=== PATIENT | male | born 1975 | race Two or more races ===

== ENCOUNTER 2016-04-26 16:54 | Emergency (ER) | payer SELFPAY ==
--- NOTE | 2016-04-26 19:23 | ER Document Report ---
ED Suture/Wound Recheck - General Chief Complaint: Suture Removal Stated Complaint: STITCH REMOVAL Time seen by provider: 19:20 Mode of Arrival: Ambulatory Information source: Patient Notes: 40-year-old male presents to ED for suture removal from his right thumb for sutures TRAVEL OUTSIDE OF THE [place] IN LAST 30 DAYS: No - HPI Previous ED treatment: Laceration repair Quality of pain: No pain Severity: None Pain Level: Denies Context: Injury Symptoms since procedure: No complaints Exacerbated by: Denies Relieved by: Denies - Related Data Allergies/Adverse Reactions: No Known Allergies Allergy (Verified 04/26/16 17:21) Past Medical History - General Information source: Patient - Social History Smoking Status: Unknown if Ever Smoked Chew tobacco use (# tins/day): No Frequency of alcohol use: None Drug Abuse: None Occupation: [employer] Lives with: Family Family History: Reviewed & Not Pertinent, Other Patient has suicidal ideation: No Patient has homicidal ideation: No - Past Medical History Cardiac Medical History: Reports: Hx Hypercholesterolemia, Hx Hypertension Pulmonary Medical History: Reports: None EENT Medical History: Reports: None Neurological Medical History: Reports: None Endocrine Medical History: Reports: Hx Diabetes Mellitus Type 2 Renal/ Medical History: Reports: None Malignancy Medical History: Reports None GI Medical History: Reports: None Musculoskeltal Medical History: Reports None Skin Medical History: Reports None Psychiatric Medical History: Reports: None Traumatic Medical History: Reports: None Infectious Medical History: Reports: None Past Surgical History: Reports: Hx Appendectomy, Hx Cardiac Surgery - valve replaced, Hx Valve Replacement - Immunizations Immunizations up to date: Yes Hx Diphtheria, Pertussis, Tetanus Vaccination: Yes Review of Systems - Review of Systems Constitutional: No symptoms reported EENT: No symptoms reported Cardiovascular: No symptoms reported Respiratory: No symptoms reported Gastrointestinal: No symptoms reported Genitourinary: No symptoms reported Male Genitourinary: No symptoms reported Musculoskeletal: No symptoms reported Skin: No symptoms reported Hematologic/Lymphatic: No symptoms reported Neurological/Psychological: No symptoms reported Physical Exam - Vital signs Vitals: Temp Pulse Resp BP Pulse Ox 98.1 F 44 L 16 107/55 L 99 04/26/16 17:15 04/26/16 17:15 04/26/16 17:15 04/26/16 17:15 04/26/16 17:15 Interpretation: Normal - General General appearance: Appears well, Alert - HEENT Head: Normocephalic, Atraumatic Eyes: Normal Pupils: PERRL - Respiratory Respiratory status: No respiratory distress Chest status: Nontender Breath sounds: Normal Chest palpation: Normal - Cardiovascular Rhythm: Regular Heart sounds: Normal auscultation Murmur: No - Abdominal Inspection: Normal Distension: No distension Bowel sounds: Normal Tenderness: Nontender Organomegaly: No organomegaly - Back Back: Normal, Nontender - Extremities General upper extremity: Normal inspection, Nontender, Normal color, Normal ROM , Normal temperature General lower extremity: Normal inspection, Nontender, Normal color, Normal ROM , Normal temperature, Normal weight bearing. No: Noa's sign - Neurological Neuro grossly intact: Yes Cognition: Normal Orientation: AAOx4 Fabiana Coma Scale Eye Opening: Spontaneous Fab[place] Coma Scale Verbal: Oriented [place] Coma Scale Motor: Obeys Commands Fabiana Coma Scale Total: 15 Speech: Normal Motor strength normal: LUE, RUE, LLE, RLE Sensory: Normal - Psychological Associated symptoms: Normal affect, Normal mood - Skin Skin Temperature: Warm Skin Moisture: Dry Skin Color: Normal Location of irregularity: Other - Sutures removed from right thumb denies pain no signs of infection Course - Re-evaluation Re-evalutation: 04/26/16 20:44 Sutures removed from left thumb and patient discharged home to follow-up with primary doctor list of primary doctors given - Vital Signs Vital signs: Temp Pulse Resp BP Pulse Ox 98.2 F 60 16 111/69 99 04/26/16 19:28 04/26/16 19:28 04/26/16 19:28 04/26/16 19:28 04/26/16 19:28 Discharge - Discharge Clinical Impression: Visit for suture removal Condition: Stable Disposition: HOME, SELF-CARE Instructions: Suture Removal, Family Physicians / Practices Additional Instructions: Acetaminophen Acetaminophen may be taken for pain relief or fever control. It's much safer than aspirin, offering a wider range of "safe" dosages. It is safe during . Some brand names are Tylenol, Panadol, Datril, Anacin 3, Tempra, and Liquiprin. Acetaminophen can be repeated every four hours. The following are maximum recommended dosages: WEIGHT Dose Drops Elixir Chewable( 80mg) (LBS.) drprs=droppers tsp=teaspoon 6 40 mg .4 ml (1/2) 6-11 80 mg .8 ml (full) 1/2 tsp 1 tab 12-16 120 mg 1 1/2 drprs 3/4 tsp 1 1/2 tabs 17-23 160 mg 2 drprs 1 tsp 2 tabs 24-30 240 mg 3 drprs 1 1/2 tsp 3 tabs 30-35 320 mg 2 tsp 4 tabs 36-41 360 mg 2 1/4 tsp 4 1 /2 tabs 42-47 400 mg 2 1/2 tsp 5 tabs 48-53 480 mg 3 tsp 6 tabs 54-59 520 mg 3 1/4 tsp 6 1 /2 tabs 60-64 560 mg 3 1/2 tsp 7 tabs 65-70 600 mg 3 3/4 tsp 7 1 /2 tabs 71-76 640 mg 4 tsp 8 tabs 77-82 720 mg 4 1/2 tsp 9 tabs 83-88 800 mg 5 tsp 10 tabs >89 pounds or adults 650 mg to 900 mg Acetaminophen can be repeated every four hours. Maximum daily dose not to exceed 4000 mg. These maximum recommended dosages are slightly higher than the dosages written on the product container, but these dosages are very safe and well below the toxic dosage for acetaminophen. FOLLOW-UP CARE: If you have been referred to a physician for follow-up care, call the physician s office for an appointment as you were instructed or within the next two days. If you experience worsening or a significant change in your symptoms, notify the physician immediately or return to the Emergency Department at any time for re-evaluation. Forms: Return to Work
[2016-04-26 19:29] VITALS: BP 111/69
== END 2016-04-26 19:29 | disposition home or self-care (01) ==
LOC: ER 16:54
DX: Z48.02 Encounter for removal of sutures (principal)

== ENCOUNTER 2018-04-05 11:26 | Emergency (ER) | payer SELFPAY ==
[2018-04-05] MEDS ORDERED: NORMAL SALINE 500 ML IV ONE (11:49)
--- NOTE | 2018-04-05 11:49 | ER Document Report ---
ED Medical Screen (RME) - General Chief Complaint: Dizziness Stated Complaint: FALL Time Seen by Provider: 04/05/18 11:37 Notes: Patient is a 42-year-old male with history of mechanical aortic valve and diabetes that presents to the emergency department for chief complaint of near syncope while at work. History obtained using a Albanian multi disciplined language analyst, using [employer] #[id number] patient states while he was at work he started feeling lightheaded, and nauseous, he stopped working when his car in [place] but the symptoms persisted so he wanted to come to the ED no history of this in the past per patient.. ROS: Other than noted above, the 12 point review of systems was reviewed with the patient and were negative, all pertinent findings are included in the HPI. PHYSICAL EXAMINATION: Vital signs reviewed. GENERAL: Well-appearing, well-nourished and in no acute distress. HEAD: Atraumatic, normocephalic. EYES: Pupils equal round extraocular movements intact, conjunctiva are normal. ENT: Nares patent NECK: Normal range of motion CV: Heart rate bradycardic, regular rhythm. LUNGS: No respiratory distress Musculoskeletal: Normal range of motion NEUROLOGICAL: Normal speech PSYCH: Normal mood, normal affect. MDM: Patient seen and examined for rapid initial assessment. Vital signs reviewed. A comprehensive ED assessment and evaluation of the patient, analysis of test results and completion of the medical decision making process will be conducted by additional ED providers. *Note is created using voice recognition software and may contain spelling, syntax or grammatical errors. TRAVEL OUTSIDE OF THE [place] IN LAST 30 DAYS: No - Related Data Allergies/Adverse Reactions: No Known Allergies Allergy (Verified 04/26/16 17:21) Past Medical History - Past Medical History Cardiac Medical History: Reports: Hx Hypercholesterolemia, Hx Hypertension Neurological Medical History: Denies: Hx Seizures Endocrine Medical History: Reports: Hx Diabetes Mellitus Type 2 Renal/ Medical History: Denies: Hx Peritoneal Dialysis Past Surgical History: Reports: Hx Appendectomy, Hx Cardiac Surgery - valve replaced, Hx Valve Replacement - Immunizations Immunizations up to date: Yes Hx Diphtheria, Pertussis, Tetanus Vaccination: Yes Physical Exam - Vital signs Vitals: Temp Pulse Resp BP Pulse Ox 98.4 F 50 L 16 116/63 97 04/05/18 11:32 04/05/18 11:32 04/05/18 11:32 04/05/18 11:32 04/05/18 11:32 Course - Vital Signs Vital signs: Temp Pulse Resp BP Pulse Ox 98.4 F 50 L 16 116/63 97 04/05/18 11:32 04/05/18 11:32 04/05/18 11:32 04/05/18 11:32 04/05/18 11:32
[2018-04-05 12:35] LABS: ABSOLUTE BASOPHILS # (AUTO) 0.1 10^3/uL (0.0-0.2); ABSOLUTE EOSINOPHILS # (AUTO) 0.1 10^3/uL (0.0-0.6); ABSOLUTE MONOCYTES (AUTO) 0.4 10^3/uL (0.1-1.4); ABSOLUTE NEUT (AUTO) 6.3 10^3/uL (1.7-8.2); BASOPHILS % (AUTO) 0.7 % (0-2); EOSINOPHILS % (AUTO) 1.3 % (0-6); HEMATOCRIT 42.4 % (37.9-51.0); HEMOGLOBIN 14.4 g/dL (13.5-17.0); LYMPHOCYTES % (AUTO) 12.9 % (13-45); MEAN CORPUSCULAR HEMOGLOBIN 30.6 pg (27.0-33.4); MEAN CORPUSCULAR VOLUME 90 fl (80-97); MONOCYTES % (AUTO) 4.7 % (3-13); PLATELET COUNT 181 10^3/uL (150-450); RED BLOOD COUNT 4.71 10^6/uL (4.35-5.55); RED CELL DISTRIBUTION WIDTH 13.4 % (11.5-14.0); SEGMENTED NEUTROPHILS % (AUTO) 80.4 % (42-78); TOTAL CELLS COUNTED % (AUTO) 100 %; WHITE BLOOD COUNT 7.9 10^3/uL (4.0-10.5)
[2018-04-05 12:36] LABS: INTERNATIONAL RATION (INR) 1.92; PROTHROMBIN TIME 22.9 SEC (11.4-15.4)
[2018-04-05 12:48] LABS: ALANINE AMINOTRANSFERASE 37 U/L (21-72); ALBUMIN 4.7 g/dL (3.5-5.0); ALKALINE PHOSPHATASE 62 U/L (38-126); ANION GAP 9 (5-19); ASPARTATE AMINO TRANSFERASE 32 U/L (17-59); BILIRUBIN,DIRECT 0.1 mg/dL (0.0-0.4); BILIRUBIN,TOTAL 0.4 mg/dL (0.2-1.3); BLOOD UREA NITROGEN 17 mg/dL (7-20); CALCIUM 9.7 mg/dL (8.4-10.2); CARBON DIOXIDE 31 mmol/L (22-30); CHLORIDE 103 mmol/L (98-107); CREATINE KINASE 230 U/L (55-170); GLUCOSE 116 mg/dL (75-110); POTASSIUM 4.3 mmol/L (3.6-5.0); SODIUM 142.5 mmol/L (137-145); TOTAL PROTEIN 7.5 g/dL (6.3-8.2)
--- NOTE | 2018-04-05 13:26 | RADIOLOGY REPORT (SQ) ---
EXAM DESCRIPTION: CHEST 2 VIEWS COMPLETED DATE/TIME: 04/05/2018 12:42 pm REASON FOR STUDY: near syncope COMPARISON: None. EXAM PARAMETERS: NUMBER OF VIEWS: two views TECHNIQUE: Digital Frontal and Lateral radiographic views of the chest acquired. RADIATION DOSE: NA LIMITATIONS: none FINDINGS: LUNGS AND PLEURA: No opacities, masses or pneumothorax. No pleural effusion. MEDIASTINUM AND HILAR STRUCTURES: No masses or contour abnormalities. HEART AND VASCULAR STRUCTURES: Heart normal size. No evidence for failure. BONES: No acute findings. HARDWARE: Sternotomy wires are in place along with valvular prostheses. OTHER: No other significant finding. IMPRESSION: NO ACUTE RADIOGRAPHIC FINDING IN THE CHEST. TECHNICAL DOCUMENTATION: JOB ID: [id number] [employer]- All Rights Reserved Reading location - IP/workstation name: [email or web address]
--- NOTE | 2018-04-05 15:42 | ER Document Report ---
ED Dizziness/Weakness - General Chief Complaint: Dizziness Stated Complaint: FALL Time Seen by Provider: 04/05/18 11:37 Notes: This is a 42-year-old male Zimbabwean-speaking only to the emergency department after a near syncopal episode. Patient states that all of a sudden he felt like he was going to pass out. [place] weak all over and went to the ground. Denied any chest pain. Patient does have a history of valvular heart replacement. He thinks it is the aortic valve and may be the mitral valve? Is a mechanical valve. On Coumadin. On lisinopril. On glipizide. States that he did eat something afterwards and it did make him feel a little bit better but he was still feeling weak so decided to come in and get evaluated. Not on any beta-blockers. He states that his heart rate is normally low but he does not know what that number is he just is told that every time he goes to the doctor. He does not think that it is ever been in the 30s but may be in the 40s in the past. Surgery was 4 years ago at [facility] in [facility]. He did not injure himself. Denies any pain at this time. TRAVEL OUTSIDE OF THE [place] IN LAST 30 DAYS: No - HPI Patient complains to provider of: Near-syncope Onset: Just prior to arrival Onset/Duration: Sudden Quality of pain: No pain Severity: Mild Pain Level: Denies Context: denies: Chronic dizziness, Vertigo Associated symptoms: Lightheaded, Loss of strength, Weak all over - Related Data Allergies/Adverse Reactions: No Known Allergies Allergy (Verified 04/26/16 17:21) Past Medical History - General Information source: Patient - Social History Smoking Status: Never Smoker Frequency of alcohol use: None Drug Abuse: None Lives with: Spouse/Significant other Family History: Reviewed & Not Pertinent, Other Patient has suicidal ideation: No Patient has homicidal ideation: No - Past Medical History Cardiac Medical History: Reports: Hx Hypercholesterolemia, Hx Hypertension Neurological Medical History: Denies: Hx Seizures Endocrine Medical History: Reports: Hx Diabetes Mellitus Type 2 Renal/ Medical History: Denies: Hx Peritoneal Dialysis Past Surgical History: Reports: Hx Appendectomy, Hx Cardiac Surgery - valve replaced, Hx Valve Replacement - Immunizations Immunizations up to date: Yes Hx Diphtheria, Pertussis, Tetanus Vaccination: Yes Review of Systems - Review of Systems Notes: Constitutional: denies: Chills, Diaphoresis, generalized weakness was reported EENT: denies: Eye discharge, Blurred vision, Tearing, Double vision, Nose congestion, Nose discharge, Throat swelling, Mouth pain Cardiovascular: denies: Palpitations, Heart racing, Orthopnea, Dyspnea, Chest pain. Near syncopal episode reported. Respiratory: denies: Cough, Hurts to breathe, Wheezing, Shortness of breath Gastrointestinal: denies: Abdominal pain, Diarrhea, Nausea, Vomiting, Black stools, bright red blood in stool Genitourinary: denies: Burning, Dysuria, Discharge, Frequency, Flank pain, Hematuria Musculoskeletal: denies: Joint pain, Joint swelling, Muscle pain, Muscle stiffness, back pain Hematologic/Lymphatic: denies: Anemia, Easy bleeding, Easy bruising, Blood clots Neurological/Psychological: denies: Confusion, Dementia, Depression, Loss of consciousness Skin: No lesions, no masses, no skin breakdown, no abscesses Physical Exam - Vital signs Vitals: Temp Pulse Resp BP Pulse Ox 98.4 F 50 L 16 116/63 97 04/05/18 11:32 04/05/18 11:32 04/05/18 11:32 04/05/18 11:32 04/05/18 11:32 Interpretation: Bradycardic - General General appearance: Appears well, Alert - HEENT Head: Normocephalic, Atraumatic Eyes: Normal Pupils: PERRL - Respiratory Respiratory status: No respiratory distress Chest status: Nontender Breath sounds: Normal Chest palpation: Normal - Cardiovascular Rhythm: Tachycardia Heart sounds: Normal auscultation Murmur: No - Mechanical click auscultated - Abdominal Inspection: Normal Distension: No distension Bowel sounds: Normal Tenderness: Nontender Organomegaly: No organomegaly - Back Back: Normal, Nontender - Extremities General upper extremity: Normal inspection, Nontender, Normal color, Normal ROM , Normal temperature General lower extremity: Normal inspection, Nontender, Normal color, Normal ROM , Normal temperature, Normal weight bearing. No: Noa's sign - Neurological Neuro grossly intact: Yes Cognition: Normal Orientation: AAOx4 Fabiana Coma Scale Eye Opening: Spontaneous [place] Coma Scale Verbal: Oriented [place] Coma Scale Motor: Obeys Commands [place] Coma Scale Total: 15 Speech: Normal Motor strength normal: LUE, RUE, LLE, RLE Sensory: Normal - Psychological Associated symptoms: Normal affect, Normal mood - Skin Skin Temperature: Warm Skin Moisture: Dry Skin Color: Normal Course - Re-evaluation Re-evalutation: 04/05/18 15:41 Laboratory 04/05/18 04/05/18 04/05/18 12:13 12:13 12:13 WBC 7.9 RBC 4.71 Hgb 14.4 Hct 42.4 MCV 90 MCH 30.6 MCHC 34.0 RDW 13.4 Plt Count 181 Seg Neutrophils % 80.4 H Lymphocytes % 12.9 L Monocytes % 4.7 Eosinophils % 1.3 Basophils % 0.7 Absolute Neutrophils 6.3 Absolute Lymphocytes 1.0 Absolute Monocytes 0.4 Absolute Eosinophils 0.1 Absolute Basophils 0.1 PT INR Sodium 142.5 Potassium 4.3 Chloride 103 Carbon Dioxide 31 H Anion Gap 9 BUN 17 Creatinine 0.68 Est GFR ( Amer) > 60 Est GFR (Non-Af Amer) > 60 Glucose 116 H POC Glucose Calcium 9.7 Total Bilirubin 0.4 Direct Bilirubin 0.1 Neonat Total Bilirubin Not Reportable Neonat Direct Bilirubin Not Reportable Neonat Indirect Bili Not Reportable AST 32 ALT 37 Alkaline Phosphatase 62 Creatine Kinase 230 H Troponin I < 0.012 Total Protein 7.5 Albumin 4.7 04/05/18 04/05/18 04/05/18 12:13 12:16 15:17 WBC RBC Hgb Hct MCV MCH MCHC RDW Plt Count Seg Neutrophils % Lymphocytes % Monocytes % Eosinophils % Basophils % Absolute Neutrophils Absolute Lymphocytes Absolute Monocytes Absolute Eosinophils Absolute Basophils PT 22.9 H INR 1.92 Sodium Potassium Chloride Carbon Dioxide Anion Gap BUN Creatinine Est GFR ( Amer) Est GFR (Non-Af Amer) Glucose POC Glucose 135 H 83 Calcium Total Bilirubin Direct Bilirubin Neonat Total Bilirubin Neonat Direct Bilirubin Neonat Indirect Bili AST ALT Alkaline Phosphatase Creatine Kinase Troponin I Total Protein Albumin Chest X-Ray 04/05/18 11:50 IMPRESSION: NO ACUTE RADIOGRAPHIC FINDING IN THE CHEST. Patient had a run of bradycardia down into the mid 30s. I did consult with cardiology. He recommends that patient be transferred. I am keeping a close eye on his glucose as patient is on a long-acting sulfonylurea. Currently blood sugar is 83. Will feed patient. Will consult with coat baster at the hospital in [place] about possible transfer. 04/05/18 15:57 Consult with a coat baster in [place], they have accepted the patient. Pending transfer at this time. 04/05/18 23:02 Patient has been observed here in the ER for several hours. Transport team is here. Patient remained stable for transport at this time. 2 sets of cardiac labs negative. - Vital Signs Vital signs: Temp Pulse Resp BP Pulse Ox 98.0 F 45 L 14 113/70 97 04/05/18 22:55 04/05/18 20:00 04/05/18 22:55 04/05/18 22:55 04/05/18 22:55 - Laboratory Result Diagrams: 04/05/18 12:13 04/05/18 12:13 Laboratory results interpreted by me: 04/05/18 04/05/18 04/05/18 12:13 12:13 12:13 Seg Neutrophils % 80.4 H Lymphocytes % 12.9 L PT 22.9 H Carbon Dioxide 31 H Glucose 116 H POC Glucose Creatine Kinase 230 H 04/05/18 12:16 Seg Neutrophils % Lymphocytes % PT Carbon Dioxide Glucose POC Glucose 135 H Creatine Kinase - EKG Interpretation by Me EKG shows normal: Intervals, QRS Complexes, ST-T Waves Rate: Bradycardia Critical Care Note - Critical Care Note Total time excluding time spent on procedures (mins): 35 Comments: Symptomatically bradycardia, consultation with specialist, coordination of care. Discharge - Discharge Clinical Impression: Bradycardia Condition: Good Disposition: Critical Access Hospital Referrals: ANIL GARCIA MD [Primary Care Provider] - Follow up as needed
--- NOTE | 2018-04-05 20:59 | EKG REPORT ---
SEVERITY:- OTHERWISE NORMAL ECG - SINUS BRADYCARDIA : Confirmed by: Sulma Chand MD 05-Apr-2018 20:59:13
[2018-04-05 23:06] VITALS: BP 107/70
== END 2018-04-05 23:14 | disposition short-term general hospital (02) ==
LOC: ER 11:26
DX: R00.1 Bradycardia, unspecified (principal); R42 Dizziness and giddiness; R53.1 Weakness; Z79.01 Long term (current) use of anticoagulants; Z79.899 Other long term (current) drug therapy; I10 Essential (primary) hypertension; E11.9 Type 2 diabetes mellitus without complications
CPT/HCPCS: 93005; 99291; 36415; 82962; 82550; 85025; 85610; 80053; 84484; 71046; 93010; J7040

== ENCOUNTER 2018-12-12 21:13 | Emergency (ER) | payer SELFPAY ==
[2018-12-12 21:40] VITALS: BP 111/64
--- NOTE | 2018-12-12 22:22 | RADIOLOGY REPORT (SQ) ---
EXAM DESCRIPTION: Left shoulder RadLex: XR SHOULDER 2 OR MORE VIEWS Views: 3 CLINICAL HISTORY: 43 years Male, bone tenderness COMPARISON: None. FINDINGS: Negative for acute fracture, dislocation, or radiopaque foreign body. Scapula is intact. No lytic changes or periosteal reaction. Sternal wires are noted. Visualized portions of the ribs are intact. IMPRESSION: 1. No acute findings.
--- NOTE | 2018-12-12 22:27 | ER Document Report ---
ED Medical Screen (RME) - General Chief Complaint: Shoulder Pain Stated Complaint: BACK PAIN Time Seen by Provider: 12/12/18 22:01 Primary Care Provider: ANIL GARCIA MD [Primary Care Provider] - Follow up as needed Notes: Patient is a 43-year-old male with a past medical history of hypertension who is also currently on Coumadin who presents emergency department with back pain. The pain started around noon. Patient states that he does feel little short of breath. He has history of heart surgery. Patient is currently a construction plant operator. Patient is primarily Pashto-speaking, and engineering designer was offered, but the daughters said they they can translate. Exam: Tenderness upon palpation to patient's left back between shoulder blade and spine. Bradycardia. I have greeted and performed a rapid initial assessment of this patient. A comprehensive ED assessment and evaluation of the patient, analysis of test results and completion of medical decision making process will be conducted by an additional ED providers. TRAVEL OUTSIDE OF THE [place] IN LAST 30 DAYS: No - Related Data Allergies/Adverse Reactions: No Known Allergies Allergy (Verified 04/26/16 17:21) Past Medical History - Past Medical History Cardiac Medical History: Reports: Hx Hypercholesterolemia, Hx Hypertension Neurological Medical History: Denies: Hx Seizures Endocrine Medical History: Reports: Hx Diabetes Mellitus Type 2 Renal/ Medical History: Denies: Hx Peritoneal Dialysis Past Surgical History: Reports: Hx Appendectomy, Hx Cardiac Surgery - valve replaced, Hx Valve Replacement - Immunizations Immunizations up to date: Yes Hx Diphtheria, Pertussis, Tetanus Vaccination: Yes Physical Exam - Vital signs Vitals: Temp Pulse Resp BP Pulse Ox 97.9 F 43 L 18 111/64 94 12/12/18 21:38 12/12/18 21:38 12/12/18 21:38 12/12/18 21:38 12/12/18 21:38 Course - Vital Signs Vital signs: Temp Pulse Resp BP Pulse Ox 97.9 F 43 L 18 111/64 94 12/12/18 21:38 12/12/18 21:38 12/12/18 21:38 12/12/18 21:38 12/12/18 21:38 Doctor's Discharge - Discharge Referrals: ANIL GARCIA MD [Primary Care Provider] - Follow up as needed
[2018-12-12] MEDS ORDERED: DIAZEPAM 5 MG TABLET PO ONE (22:41)
[2018-12-12] MEDS ORDERED: ACETAMINOPHEN 325 MG TABLET PO ONE (22:41)
--- NOTE | 2018-12-12 22:51 | ER Document Report ---
ED General - General Chief Complaint: Shoulder Pain Stated Complaint: BACK PAIN Time Seen by Provider: 12/12/18 22:01 Primary Care Provider: ANIL GARCIA MD [Primary Care Provider] - Follow up in 3-5 days TRAVEL OUTSIDE OF THE [place] IN LAST 30 DAYS: No - HPI Notes: Patient is a 43-year-old male that presents to the emergency department for chief complaint of left-sided back and shoulder pain. Patient's pain started this afternoon while he was outside picking up trash. He did is not recall lifting anything heavy but was leaning forward picking up the trash for a while. He states he started having an aching in his left back which is been constant since onset. It radiates up into his left shoulder. The pain is worse with movement and relieved some with rest. He has not taken any pain medication at home. He denies any shortness of breath, chest pain, palpitations, lightheadedness and syncope. Patient does have a history of 2 cardiac valve replacements 5 years ago and has not had any complications since. He is on Coumadin from his cardiac surgery. Patient denies any fall or injury to this area. Patient is [place]-speaking and was offered formal translation services, his daughter is at bedside. Patient refused formal services and is okay with his daughter translating. Past Medical History: Hypertension Past Surgical History: Heart valve replacement Social History: Denies tobacco and alcohol use Family History: Reviewed and noncontributory for presenting illness Allergies: Reviewed, see documented allergy list. REVIEW OF SYSTEMS: CONSTITUTIONAL : No fever No chills No diaphoresis No recent illness EENT: No vision changes No congestion No sore throat CARDIOVASCULAR: No chest pain No palpitations RESPIRATORY: No shortness of breath No cough No difficulty breathing GASTROINTESTINAL: No abdominal pain No nausea No vomiting No diarrhea GENITOURINARY: No dysuria No hematuria No difficulty urinating MUSCULOSKELETAL: back pain No leg pain Left shoulder pain SKIN: No rashes No lesions LYMPHATIC: No swollen, enlarged glands. NEUROLOGICAL: No lightheadedness No headache No weakness No paresthesias PSYCHIATRIC: No anxiety No depression PHYSICAL EXAMINATION: Vital signs reviewed, nursing noted reviewed. GENERAL: Well-appearing, well-nourished and in no acute distress. HEAD: Atraumatic, normocephalic. EYES: Eyes appear normal, extraocular movements intact, sclera anicteric, conjunctiva are normal. ENT: nares patent, oropharynx clear without exudates. Moist mucous membranes. NECK: Normal range of motion, supple without lymphadenopathy LUNGS: Breath sounds clear to auscultation bilaterally and equal. No wheezes rales or rhonchi. HEART: Regular rate and rhythm without murmurs ABDOMEN: Soft, nontender, normoactive bowel sounds. No rebound, guarding, or rigidity. No masses appreciated. Back: No midline thoracic or lumbar tenderness, full range of motion of the spine. Pinpoint tenderness to palpation over the left lateral thoracic paraspinal muscles and medial scapular muscles on the left as well as to a lesser extent the left trapezius muscle. Pain reproduced with range of motion. EXTREMITIES: Normal but painful range of motion of left shoulder without bony tenderness or deformity. no pitting or edema. NEUROLOGICAL: No focal neurological deficits. Moves all extremities spontaneously Motor and sensory grossly intact on exam. PSYCH: Normal mood, normal affect. SKIN: Warm, Dry, normal turgor, no rashes or lesions noted on exposed skin - Related Data Allergies/Adverse Reactions: No Known Allergies Allergy (Verified 04/26/16 17:21) Past Medical History - Social History Smoking Status: Never Smoker Family History: Reviewed & Not Pertinent, Other Patient has suicidal ideation: No Patient has homicidal ideation: No - Past Medical History Cardiac Medical History: Reports: Hx Hypercholesterolemia, Hx Hypertension Neurological Medical History: Denies: Hx Seizures Endocrine Medical History: Reports: Hx Diabetes Mellitus Type 2 Renal/ Medical History: Denies: Hx Peritoneal Dialysis Past Surgical History: Reports: Hx Appendectomy, Hx Cardiac Surgery - valve replaced, Hx Valve Replacement - Immunizations Immunizations up to date: Yes Hx Diphtheria, Pertussis, Tetanus Vaccination: Yes Physical Exam - Vital signs Vitals: Temp Pulse Resp BP Pulse Ox 97.9 F 43 L 18 111/64 94 12/12/18 21:38 12/12/18 21:38 12/12/18 21:38 12/12/18 21:38 12/12/18 21:38 Course - Re-evaluation Re-evalutation: 12/12/18 22:50 Vitals reviewed. Nursing notes reviewed. Patient given Valium and Tylenol for his pain. EKG was obtained because of patient's cardiac history and shows sinus bradycardia without any other acute changes from prior. Chart review shows patient has been bradycardic in the 40s since 2017. He is currently on beta- blockade. He has no symptoms from his bradycardia including lightheadedness or syncope to necessitate further monitoring. His pain is very reproducible with palpation and range of motion of the left shoulder and occurred after repetitive motion. This is most consistent with muscle strain. Patient does have a history of cardiac disease but is not having any chest pain, dyspnea, palpitations or syncopal symptoms to suggest his pain is cardiac in nature. X- ray of the left shoulder shows no acute bony injury as well as no left-sided pneumothorax or hemothorax. Patient counseled on rest and stretching and will be given Robaxin for symptomatic management. He was counseled on return precautions and verbalized understanding. Shoulder X-Ray 12/12/18 21:32 IMPRESSION: 1. No acute findings. - Vital Signs Vital signs: Temp Pulse Resp BP Pulse Ox 97.9 F 43 L 18 111/64 94 12/12/18 21:38 12/12/18 21:38 12/12/18 21:38 12/12/18 21:38 12/12/18 21:38 - EKG Interpretation by Me Additional EKG results interpreted by me: 12/12/18 22:57 Interpreted by myself [id number]: Sinus bradycardia, rate 38, normal axis, no ectopy, no STEMI, no significant change from 04/05/2018 Discharge - Discharge Clinical Impression: Strain of thoracic back region Condition: Stable Disposition: HOME, SELF-CARE Instructions: Upper Back Strain ([facility]) Additional Instructions: Please return to the emergency department if you have any worsening, or concern of your symptoms. Please return to the emergency department if you develop chest pain, difficulty breathing, severe abdominal pain, or ongoing vomiting. Please follow-up with your primary care physician in 2-3 days and any other recommended physicians. If prescribed, take all medications as directed. If you have any questions or concerns do not hesitate to return the emergency department for evaluation. The muscle relaxer Robaxin may make you tired. Avoid driving or operating heavy machinery while taking this medication. Prescriptions: Methocarbamol [Robaxin 750 mg Tablet] 750 mg PO Q4 PRN #30 tablet PRN Reason: Back pain Referrals: ANIL GARCIA MD [Primary Care Provider] - Follow up in 3-5 days
--- NOTE | 2018-12-13 17:36 | EKG REPORT ---
SEVERITY:- OTHERWISE NORMAL ECG - SINUS BRADYCARDIA : Confirmed by: Sulma Chand MD 13-Dec-2018 17:35:47
== END 2018-12-12 23:02 | disposition home or self-care (01) ==
LOC: ER 21:13
DX: S29.012A Strain of muscle and tendon of back wall of thorax, initial encounter (principal); X58.XXXA Exposure to other specified factors, initial encounter; M54.9 Dorsalgia, unspecified; M25.512 Pain in left shoulder; R00.1 Bradycardia, unspecified; I10 Essential (primary) hypertension; E11.9 Type 2 diabetes mellitus without complications; Z79.01 Long term (current) use of anticoagulants; Z95.2 Presence of prosthetic heart valve; Z79.899 Other long term (current) drug therapy
CPT/HCPCS: 93005; 93010; 99284

== ENCOUNTER 2019-12-27 23:06 | Emergency (ER) | payer SELFPAY ==
[2019-12-27 23:13] VITALS: BP 118/72
== END 2019-12-28 02:15 | disposition left against medical advice (07) ==
LOC: ER 23:06
DX: Z53.21 Procedure and treatment not carried out due to patient leaving prior to being seen by health care provider (principal)